=== PATIENT | female | born 2000 | race Caucasian/White ===

== ENCOUNTER 2021-09-22 12:55 | Outpatient (CLI) | payer OTHER, SELFPAY ==
--- NOTE | ~2021-09-22 | MR_ITS ---
EXAMINATION: MR lumbar spine wo con DATE: 09/22/2021 13:38 INDICATION: Lumbago. Sciatica. TECHNIQUE: Magnetic resonance imaging (MRI) of the lumbar spine was performed without intravenous con trast. Sequences included sagittal T2-weighted FSE, sagittal T2-weighted FS FSE, sagittal T1-weighted FSE, and axial T2-weighted FSE. COMPARISON: None FINDINGS: Bone alignment is normal. Vertebral body heights are normal. Intervertebral disc heights ar e normal. The distal spinal cord signal intensity is normal. The conus medullaris is at T12-L1. The f ollowing disc levels are specifically discussed: L1-L2: The disc does not extend beyond the endplate margin. There is mild right and moderate left fac et joint osteoarthritis. There is no neural foraminal stenosis. There is no central canal stenosis. L2-L3: The disc does not extend beyond the endplate margin. There is mild bilateral facet joint osteo arthritis. There is no neural foraminal stenosis. There is no central canal stenosis. L3-L4: The disc does not extend beyond the endplate margin. There is moderate bilateral facet joint o steoarthritis. There is no neural foraminal stenosis. There is no central canal stenosis. L4-L5: The disc is bulging. There is mild right and moderate left facet joint osteoarthritis. There i s mild bilateral neural foraminal stenosis. There is mild central canal stenosis. L5-S1: There is a large left central extrusion with mass effect on the bilateral S1 nerve roots in th e lateral recesses. There is mild bilateral facet joint osteoarthritis. There is moderate bilateral n eural foraminal stenosis. There is moderate central canal stenosis. IMPRESSION: 1. Large extrusion at L5-S1 with moderate central canal stenosis and moderate stenosis of the neural foramina. Reviewed, dictated and finalized at location A. IMPRESSION: 1. Large extrusion at L5-S1 with moderate central canal stenosis and moderate s tenosis of the neural foramina.
== END 2021-09-22 12:56 | disposition home or self-care (01) ==
LOC: ANHIMG 13:02
PROVIDERS: PCP Internal Medicine; Visit Provider Internal Medicine
DX: M54.40 Lumbago with sciatica, unspecified side (principal); M51.27 Other intervertebral disc displacement, lumbosacral region
CPT/HCPCS: 72148

== ENCOUNTER 2021-09-25 19:06 | Emergency (ER) | payer OTHER, SELFPAY ==
--- NOTE | 2021-09-25 19:08 | ECG_ITS ---
Measurements Intervals Melber Rate: 113 P: 54 HI: 149 QRS: 46 QRSD: 86 T: 39 QT: 322 QTc: 442 Interpretive Statements SINUS TACHYCARDIA NONSPECIFIC ST & T-WAVE ABNORMALITY NO PREVIOUS ECG AVAILABLE FOR COMPARISON Electronically Signed On 09-26-2021 18:11:13 CDT by Noemi Ware M.D.
[2021-09-25 19:29] LABS: Basophils Percent Auto 0.4 % (0.2-1.2); Eosinophils Absolute Auto 0.2 K/mm3 (0-0.3); Eosinophils Percent Auto 2.4 % (0-4.4); Hematocrit 38.7 % (37.0-47.0); Hemoglobin 12.2 g/dL (12.0-15.0); Immature Granulocyte Absolute 0.02 K/mm3 (0.00-0.031); Immature Granulocyte Percent A 0.2 % (0-0.5); Lymphocytes Absolute Auto 2.91 K/mm3 (0.9-3.2); Mean Corpuscular HGB Conc 31.5 g/dl (32-36); Mean Corpuscular Hemoglobin 26.1 pg (26-34); Mean Corpuscular Volume 82.9 fl (80-100); Mean Platelet Volume 9.7 fl (7.4-10.4); Monocytes Absolute Auto 0.6 K/mm3 (0.1-0.6); Monocytes Percent Auto 5.9 % (2.6-8.5); Neutrophils Absolute Auto 6.3 K/mm3 (1.3-6.7); Neutrophils Percent Auto 62.1 % (45.5-73.1); Platelet Count Result 352 k/mm3 (150-375); Red Blood Count 4.67 M/mm3 (4.2-5.4); Red Cell Distribution Width 13.3 % (11.5-14.5); White Blood Count 10.1 K/mm3 (4.5-10.0)
[2021-09-25 19:40] LABS: INR 0.8; Prothrombin Time 10.9 Seconds (11.1-14.7)
[2021-09-25 19:41] LABS: Alanine Aminotransferase 37 U/L (6-35); Alkaline Phosphatase 56 U/L (38-126); Anion Gap 9 mmol/L (8-16); Aspartate Amino Transferase 31 U/L (14-36); Bilirubin,Total 0.3 mg/dL (0.2-1.3); Blood Urea Nitrogen 8 mg/dL (7-17); Calcium 9.7 mg/dL (8.4-10.2); Carbon Dioxide 26 mmol/L (22-30); Chloride 102 mmol/L (98-107); Estimated Glomerular Filt Rate > 60; Glucose 103 mg/dL (65-110); Lipase 43 U/L (23-300); Potassium 3.5 mmol/L (3.4-5.0); Sodium 137 mmol/L (137-145)
[2021-09-25 19:48] VITALS: BP 145/92; PULSE 109; RESP 16; TEMP 36.8; O2SAT 100
[2021-09-25 19:52] LABS: Troponin I < 0.012 ng/mL (0.000-0.034)
[2021-09-25 20:11] LABS: Partial Thromboplastin Time 23.7 SECONDS (22.3-36.8)
[2021-09-25 20:48] LABS: Appearance Urine Clear (Clear); Bilirubin Urine Negative (Negative); Blood Urine Negative (Negative); Color Urine Yellow (Yellow); Glucose Urine UA Negative (Negative); Ketones Urine Negative (Negative); Leukocyte Esterase Ur Negative LEU/UL (Negative); Nitrate Urine Negative (Negative); Protein Urine Negative (Negative); Specific Grav Ur 1.015 (1.001-1.035); Urobilinogen Urine 0.2 mg/dL (<2.0); pH Urine 6.5 (5.0-9.0)
[2021-09-25 20:49] VITALS: PULSE 92
--- NOTE | 2021-09-25 20:50 | PC.NURSE ---
Pt denies any CP, states she is having breast pain, tenderness.
[2021-09-25 20:51] VITALS: BP 133/73; PULSE 79; RESP 29; O2SAT 100
[2021-09-25 21:23] LABS: Add Urine Microscopic? NO
--- NOTE | 2021-09-25 21:40 | ED.GENADULT ---
HPI - General Adult General Chief complaint: Unspecified Stated complaint: dizzy spells,chest pain Time Seen by Provider: 09/25/21 20:48 History of Present Illness HPI narrative: 20-year-old female presenting to the emergency department for evaluation of bilateral breast pain. Patient states she has had recent weight gain due to her stopping of drinking alcohol. Patient states that her breasts have gotten larger and she has increased vasculature. Patient denies any fevers. Patient denies any erythema of the breast. Patient denies any nausea vomiting diarrhea. Patient has taken multiple home tests at home that were negative. Related Data Home Medications Medication Instructions Recorded Confirmed acetaminophen 650 mg 650 mg PO Q8H 01/24/21 04/26/21 tablet,extended release (Tylenol 8 Hour) Allergies Allergy/AdvReac Type Severity Reaction Status Date / Time No Known Allergies Allergy Verified 09/25/21 20:53 Review of Systems Review of Systems: CONSTITUTIONAL: Denies fever, chills, or sweats. EYES: Denies visual changes, redness, or discharge. ENT: Denies rhinorrhea, congestion, sore throat, or otalgia. CARDIOVASCULAR: Denies chest pain, palpitations, or edema. RESPIRATORY: Denies cough or dyspnea. GASTROINTESTINAL: Denies abdominal pain, nausea, vomiting, or diarrhea. GENITOURINARY: Denies dysuria or hematuria. SKIN: Denies rash or itching. MUSCULOSKELETAL: Bilateral breast swelling NEUROLOGIC: Denies headache, numbness, or weakness. PMFSH Past Medical History Medical History (Updated 09/26/21 @ 00:00 by Conner Avila) Broken arm Family History Family History Father Alcoholism Hypertension Depression Anxiety Mother Cancer Depression Anxiety Hypertension Sibling Depression Anxiety Grandparent Thyroid condition Social History Social History (Updated 04/26/21 @ 11:01 by Marianna Trammell) Smoking packs per day: 1 Smoking cigarettes per day: 20.0 Years smoked: 20 Smoking pack-years: 20.00 Smoking status: Current every day smoker Tobacco type: cigarettes Alcohol intake: never Substance use: never Substance use type: does not use Exam Narrative: APPEARANCE: Well appearing, no pain, no distress, well-nourished. HEAD: normocephalic, atraumatic. EYES: PERRLA/EOMI, conjunctivae clear. NECK: Supple. No adenopathy, no masses. RESPIRATORY: Airway patent, respirations nonlabored. Clear to auscultation bilaterally, no rales, rhonchi, wheezing. CARDIOVASCULAR: Regular rate and rhythm without murmurs rubs or gallops. ABDOMINAL: Soft, nontender, nondistended, normal bowel sounds MUSCULOSKELETAL: Moves all extremities. Strength/ROM intact, No edema, No calf tenderness. NEURO: Alert. Cranial nerves II through XII intact. Grossly intact SKIN: Breasts are normal-appearing bilaterally. No erythema or peau d'orange. No tenderness to palpation. Course Course Emergency Course: Patient had a negative test. Patient had a pending blood hCG and patient eloped prior to the results of her labs Vital Signs Vital signs: Vital Signs Temperature 98.2 F 09/25/21 19:48 Pulse Rate 109 H 09/25/21 19:48 Respiratory Rate 16 09/25/21 19:48 Blood Pressure 145/92 H 09/25/21 19:48 Pulse Oximetry 100 09/25/21 19:48 Oxygen Delivery Room Air 09/25/21 19:48 Temperature 98.2 F 09/25/21 19:48 Pulse Rate 79 09/25/21 20:51 Respiratory Rate 29 H 09/25/21 20:51 Blood Pressure 133/73 09/25/21 20:51 Pulse Oximetry 100 09/25/21 20:51 Oxygen Delivery Room Air 09/25/21 19:48 Medical Decision Making Vital Signs Vital Signs: Vital Signs Temperature 98.2 F 09/25/21 19:48 Pulse Rate 109 H 09/25/21 19:48 Respiratory Rate 16 09/25/21 19:48 Blood Pressure 145/92 H 09/25/21 19:48 Pulse Oximetry 100 09/25/21 19:48 Oxygen Delivery Room Air 09/25/21 19:48
[2021-09-25 21:57] LABS: SPREG INTERNAL CONTROL Positive; Serum Qual hCG Negative
== END 2021-09-25 21:43 | disposition left against medical advice (07) ==
PROVIDERS: Emergency Medicine; Emergency Provider Emergency Medicine; PCP Internal Medicine
DX: N64.4 Mastodynia (principal); F17.210 Nicotine dependence, cigarettes, uncomplicated
CPT/HCPCS: 36415; 80053; 81003; 81025; 83690; 84484; 84703; 85025; 85610; 85730; 93005; 99284

== ENCOUNTER 2022-06-11 10:39 | Outpatient (CLI) | payer OTHER, SELFPAY ==
--- NOTE | ~2022-06-11 | MR_ITS ---
EXAMINATION: MR lumbar spine wo con DATE: 06/11/2022 11:14 INDICATION: Lumbar radiculopathy. TECHNIQUE: Magnetic resonance imaging (MRI) of the lumbar spine was performed without intravenous con trast. Sequences included sagittal T2-weighted FSE, sagittal T2-weighted FS FSE, sagittal T1-weighted FSE, and axial T2-weighted FSE. COMPARISON: Lumbar spine MRI 09/22/21 FINDINGS: Bone alignment is normal. There is mild chronic anterior wedging of T11 vertebral body. The re is mildly decreased disc height at L5-S1. The distal spinal cord signal intensity is normal. The c onus medullaris is at L1. The following disc levels are specifically discussed: L1-L2: The disc does not extend beyond the endplate margin. There is mild bilateral facet joint osteo arthritis. There is no neural foraminal stenosis. There is no central canal stenosis. L2-L3: The disc does not extend beyond the endplate margin. There is mild bilateral facet joint osteo arthritis. There is no neural foraminal stenosis. There is no central canal stenosis. L3-L4: The disc does not extend beyond the endplate margin. There is mild bilateral facet joint osteo arthritis. There is no neural foraminal stenosis. There is no central canal stenosis. L4-L5: The disc is bulging. There is mild bilateral facet joint osteoarthritis. There is mild bilater al neural foraminal stenosis. There is mild central canal stenosis. L5-S1: The disc is bulging with superimposed central extrusion. There is mild bilateral facet joint o steoarthritis. There is mild bilateral neural foraminal stenosis. There is mild central canal stenosi s. IMPRESSION: 1. Mild lumbar spondylosis with interval decrease in size of the extrusion at L5-S1. Reviewed, dictated and finalized at location A. IMPRESSION: 1. Mild lumbar spondylosis with interval decrease in size of the extrusion at L 5-S1.
--- NOTE | ~2022-06-11 | XR_ITS ---
EXAMINATION: XR knee RT 3V DATE: 06/11/2022 11:26 INDICATION: Right knee pain TECHNIQUE: Three views of the right knee were obtained. COMPARISON: None. FINDINGS: Alignment is normal. No fracture or osteochondral lesion. Joint spaces are normal with no e rosions. No joint effusion/synovitis. Soft tissues are unremarkable. IMPRESSION: 1. No acute osseous abnormality. Reviewed, dictated and finalized at location B.
== END 2022-06-11 10:40 | disposition home or self-care (01) ==
PROVIDERS: PCP Nurse Practitioner Family; Visit Provider Neurological Surgery
DX: M25.561 Pain in right knee (principal); M47.26 Other spondylosis with radiculopathy, lumbar region; M51.27 Other intervertebral disc displacement, lumbosacral region
CPT/HCPCS: 72148; 73562

== ENCOUNTER 2023-06-19 13:50 | Emergency (ER) | payer OTHER, SELFPAY ==
[2023-06-19 13:56] VITALS: BP 122/71; PULSE 56; RESP 21; TEMP 36.5; O2SAT 97
--- NOTE | 2023-06-19 14:05 | ECG_ITS ---
SEE SCANNED COPY FOR CONFIRMED REPORT MTDD
[2023-06-19 14:06] VITALS: O2SAT 98
[2023-06-19 14:08] VITALS: PULSE 89
--- NOTE | 2023-06-19 14:23 | ED.SEIZURE ---
HPI - Seizure General Chief Complaint: Seizure Stated Complaint: SEIZURE Time Seen by Provider: 06/19/23 14:22 Source: patient and EMS Mode of arrival: EMS Limitations: no limitations History of Present Illness HPI Narrative: 22 years old white female is lying down in bed with her boyfriend relaxing suddenly start some staring in the air, foaming from the mouth with seizing all over lasted for about about 3 minutes, tongue bite, urine incontinence, history of seizure currently on Keppra 500 twice a day. Patient denies any trauma or any pain at this time PATIENT REPORTED NOT TAKING HER KEPPRA PRESCRIBED. SHE TAKE IT WHEN SHE REMEMBER Related Data Home Medications Medication Instructions Recorded Confirmed ibuprofen 200 mg tablet 200 mg PO Q6H PRN 11/07/21 11/07/21 melatonin 5 mg capsule mg PO QHS PRN 11/07/21 11/07/21 Allergies Allergy/AdvReac Type Severity Reaction Status Date / Time No Known Allergies Allergy Verified 06/19/23 14:09 Review of Systems Review of Systems: All systems reviewed & are unremarkable except as noted in HPI and below PMFSH Past Medical History Medical History Broken arm Surgical History Surgical History History of surgery on arm Family History Family History Father Alcoholism Hypertension Depression Anxiety Mother Cancer Depression Anxiety Hypertension Sibling Depression Anxiety Grandparent Thyroid condition Social History Social History Smoking packs per day: 1 Smoking cigarettes per day: 20.0 Years smoked: 20 Smoking pack-years: 20.00 Smoking status: Current every day smoker Tobacco type: cigarettes Alcohol intake: never Substance use: never Substance use type: does not use Living arrangements: with family Occupation/Education: occupation Gender identity (if verbalized by the patient): Female Sexual Orientation (if Verbalized by the Patient): Straight or Heterosexual Exam Narrative: General appearance: Well-developed, well-nourished Skin: Normal color Head: Normocephalic, nontraumatic Eyes: Clear conjunctiva ENT: Oropharynx normal, ears normal, nose normal, tongue bites Neck: Supple, nontender Chest and respiratory: Airway patent, no respiratory distress, no accessory muscle use Heart: Regular rate/rhythm Abdomen: Soft, nontender, no organomegaly, quiet bowel sounds Vascular: Normal peripheral pulses, normal capillary refill. Musculoskeletal: Normal range of motion, nontender back Neurologic: Alert and oriented ?3, [employer] is normal as tested, no gross motor deficit Course Vital Signs Vital signs: Vital Signs Temperature 36.5 C 06/19/23 13:56 Pulse Rate 56 L 06/19/23 13:56 Respiratory Rate 21 H 06/19/23 13:56 Blood Pressure 122/71 06/19/23 13:56 Pulse Oximetry 97 06/19/23 13:56 Oxygen Delivery Room Air 06/19/23 13:56 Temperature 36.5 C 06/19/23 13:56 Pulse Rate 64 06/19/23 17:02 Respiratory Rate 24 H 06/19/23 17:02 Blood Pressure 113/92 H 06/19/23 17:02 Pulse Oximetry 100 06/19/23 17:02 Oxygen Delivery Room Air 06/19/23 14:06 MDM - Seizure MDM Narrative Medical decision making narrative: PATIENT PRESENTS WITH RECURRENT SEIZURE, PATIENT DOES NOT TAKE HER KEPPRA PRESCRIBED, SHE TAKE IT WHEN SHE REMEMBER. BLOOD WORKUP AND URINALYSIS TODAY SHOWED NO ACUTE ABNORMALITIES. IN THE ED PATIENT RECEIVED 1 G OF KEPPRA IV, FEELING MUCH BETTER AND PLANNING TO TAKE HER KEPPRA PRESCRIBED.
[2023-06-19] MEDS: levETIRAcetam 1000MG/NACL100ML 1,000 MG/100 ML BAG 400 MG IVPB (14:38)
[2023-06-19 16:18] LABS: Basophils Absolute Auto 0.1 K/mm3 (0.0-0.1); Basophils Percent Auto 0.5 % (0.2-1.2); Eosinophils Absolute Auto 0.2 K/mm3 (0-0.3); Eosinophils Percent Auto 1.2 % (0-4.4); Hematocrit 44.8 % (37.0-47.0); Hemoglobin 14.6 g/dL (12.0-15.0); Immature Granulocyte Absolute 0.04 K/mm3 (0.00-0.031); Immature Granulocyte Percent A 0.3 % (0-0.5); Lymphocytes Absolute Auto 1.55 K/mm3 (0.9-3.2); Mean Corpuscular HGB Conc 32.6 g/dl (32-36); Mean Corpuscular Hemoglobin 27.9 pg (26-34); Mean Corpuscular Volume 85.5 fl (80-100); Mean Platelet Volume 9.7 fl (7.4-10.4); Monocytes Absolute Auto 0.6 K/mm3 (0.1-0.6); Monocytes Percent Auto 4.5 % (2.6-8.5); Neutrophils Absolute Auto 11.7 K/mm3 (1.3-6.7); Neutrophils Percent Auto 82.5 % (45.5-73.1); Platelet Count Result 301 k/mm3 (150-375); Red Blood Count 5.24 M/mm3 (4.2-5.4); Red Cell Distribution Width 12.9 % (11.5-14.5); White Blood Count 14.2 K/mm3 (4.5-10.0)
[2023-06-19 16:31] LABS: Alanine Aminotransferase 17 U/L (6-35); Albumin Level 4.4 g/dL (3.5-5.1); Alkaline Phosphatase 69 U/L (38-126); Anion Gap 2 mmol/L (4-12); Aspartate Amino Transferase 17 U/L (14-36); Bilirubin,Total 0.4 mg/dL (0.2-1.3); Blood Urea Nitrogen 5 mg/dL (7-17); Calcium 9.2 mg/dL (8.4-10.2); Carbon Dioxide 30 mmol/L (22-30); Chloride 109 mmol/L (98-107); Estimated Glomerular Filt Rate > 60; Glucose 98 mg/dL (65-110); Potassium 4.2 mmol/L (3.4-5.0); Sodium 141 mmol/L (137-145)
[2023-06-19 17:02] VITALS: BP 113/92; PULSE 64; RESP 24; O2SAT 100
[2023-06-19 17:21] LABS: Appearance Urine Clear (Clear); Bacteria Urine Rare /hpf; Bilirubin Urine Negative (Negative); Blood Urine Negative (Negative); Color Urine Yellow (Yellow); Glucose Urine UA Negative (Negative); Ketones Urine Negative (Negative); Leukocyte Esterase Ur Negative LEU/UL (Negative); Nitrate Urine Negative (Negative); Non Pathogenic Casts 0-2; Protein Urine Trace mg/dL (Negative); RBC Urine 0-2 /hpf (0-2); Specific Grav Ur 1.022 (1.001-1.035); Squamous Epithelial Cell Urine Few /hpf (Few); Urobilinogen Urine 0.2 mg/dL (<2.0); WBC Urine 0-5 /hpf (0-3); pH Urine 6.5 (5.0-9.0)
[2023-06-19 17:26] LABS: Add Urine Microscopic? YES
== END 2023-06-19 18:00 | disposition home or self-care (01) ==
PROVIDERS: Emergency Provider Emergency Medicine; PCP Internal Medicine Infectious Disease
DX: G40.909 Epilepsy, unspecified, not intractable, without status epilepticus (principal); T42.6X6A Underdosing of other antiepileptic and sedative-hypnotic drugs, initial encounter; Z91.128 Patient's intentional underdosing of medication regimen for other reason; F17.210 Nicotine dependence, cigarettes, uncomplicated; R00.1 Bradycardia, unspecified
CPT/HCPCS: 36415; 80053; 81001; 85025; 93005; 96365; 99284; J1953

== ENCOUNTER 2023-06-22 11:09 | Outpatient (CLI) | payer OTHER, SELFPAY ==
--- NOTE | 2023-06-23 11:05 | WPDNEUROLOGY ---
Neurology EEG Report General Information Date of Study: 06/22/23 TEST eeg DIAGNOSIS Seizure disorder CONDITION OF RECORDING awake drowsy and sleep EEG NUMBER [id number] CLINICAL HISTORY patient reports she has had 3 or 4 episodes in the last 6 years of having an anxiety attack and losing consciousness. Has also bitten her tongue and was incontinent every time. EEG DESCRIPTION Basic resting occipital frequency consists of low voltage 9 to 11 hertz per 2nd alpha admixed with low-voltage 15 to 18 hertz per 2nd beta. Good kristina posterior gradient is documented. Low-voltage beta activity seen diffusely admixed with waxing and waning posterior alpha rhythm during drowsiness. Bilateral symmetrical sleep activity is noted with low-voltage beta and intermittent theta activity evolving into bilateral symmetrical sleep spindles as well. Photic stimulation produced normal drive. Hyperventilation produced normal and symmetrical buildup. Non paroxysmal. Nonfocal. Nonlateralizing. IMPRESSION Normal record normal record Which does not rule out the possibility of seizures, clinical correlation recommended.
== END 2023-06-22 11:10 | disposition home or self-care (01) ==
LOC: ANHNEURO 11:12
PROVIDERS: PCP Internal Medicine Infectious Disease; Visit Provider Internal Medicine Infectious Disease
DX: G40.909 Epilepsy, unspecified, not intractable, without status epilepticus (principal)
CPT/HCPCS: 95816